=== PATIENT | male | born 1990 | race African-American/Black ===

== ENCOUNTER 2023-09-29 07:39 | Emergency (ER) | payer BC, OTHER ==
[2023-09-29 08:04] VITALS: BP 121/68; PULSE 81; RESP 18; TEMP 98.6; BMI 26.4
[2023-09-29] MEDS ORDERED: ACETAMINOPHEN 500 MG TABLET (FP) PO ONE (08:12)
[2023-09-29] MEDS ORDERED: ACETAMINOPHEN 500 MG TABLET (FP) ONE (08:16)
== END 2023-09-29 10:37 | disposition home or self-care (01) ==
LOC: JERFT 07:39
DX: U07.1 COVID-19 (principal); J02.9 Acute pharyngitis, unspecified; R50.9 Fever, unspecified; M79.10 Myalgia, unspecified site; Z20.822 Contact with and (suspected) exposure to COVID-19
CPT/HCPCS: 0241U-QW; 87651; 99283-25